=== PATIENT | male | born 1970 | race Caucasian/White ===

== ENCOUNTER 2018-08-09 14:14 | Observation (INO) ==
[2018-08-09] MEDS ORDERED: ASPIRIN 325 MG TABLET PO STA (14:36)
[2018-08-09] MEDS ORDERED: SODIUM CHLORIDE 0.9% 500 ML IV STA (14:36)
[2018-08-09] MEDS ORDERED: MORPHINE 4 MG/1 ML VIAL IV STA (14:36)
[2018-08-09] MEDS ORDERED: ALUM/MAG/SIMETH/LIDO VISC 1:1 30 ML BOTTLE PO STA (14:36)
[2018-08-09] MEDS ORDERED: ONDANSETRON 4 MG/2 ML VIAL IV STA ×2 (14:36→15:27)
[2018-08-09] MEDS ORDERED: NITROGLYCERIN 2% OINT 1 INCH/GM PACK TOP STA (14:36)
[2018-08-09] MEDS ORDERED: METOPROLOL TARTRATE 5 MG/5 ML VIAL IV STA (14:36)
[2018-08-09 14:44] LABS: Basophils % 0.5 % (0.0-0.8); Hematocrit 44.8 VOL% (42.0-52.0); Hemoglobin 14.2 GM/DL (14.0-18.0); Immature Granulocytes % 0.5 %; Immature Granulocytes Absolute 0.03 #; Lymphocytes # 1.1 10*3/uL (1.4-4.0); Mean Corpuscular HGB Conc 31.7 GM/DL (32-36); Mean Corpuscular Hemoglobin 28 PG (27-34); Mean Corpuscular Volume 87.2 FL (87-102); Mean Platelet Volume 10.2 FL (9.6-12.0); Monocytes # 0.4 10*3/uL (0.11-0.8); Monocytes % 6.7 % (1.7-12.7); Neutrophils # 4.7 10*3/uL (1.4-7.4); Neutrophils % 75.3 % (38.7-73.9); Platelet Count 415 T/CUMM (130-400); Red Blood Count 5.14 MC/CUMM (3.8-5.5); Red Cell Distribution Width 17.2 % (9.3-17.3); White Blood Count 6.3 T/CUMM (4-12)
[2018-08-09 14:52] LABS: INR 1.1; PT Patient Result 11.6 SECS
[2018-08-09 14:58] LABS: Albumin 3.6 G/DL (3.4-5.0); Bilirubin,Total 0.9 MG/DL (0.2-1.0); Calcium 9.3 MG/DL (8.5-10.1); Osmolality,Calculated 272.1 MOS/KG (273-304); Potassium 4.4 MMOL/L (3.5-5.1); Total Protein 7.4 G/DL (6.4-8.3)
[2018-08-09] MEDS ORDERED: MAGNESIUM SULF RIDER 2 GM in PREMIX 1 EACH IV STA (15:12)
[2018-08-09] MEDS ORDERED: ONDANSETRON 4 MG/2 ML VIAL IV PRN (16:44)
[2018-08-09] MEDS ORDERED: INSULIN LISPRO 100 UNIT/ML SUBCUT ONE (16:44)
[2018-08-09] MEDS ORDERED: MAGNESIUM SULF RIDER 4 GM in PREMIX 1 EACH IV PRN (16:44)
[2018-08-09] MEDS ORDERED: POTASSIUM CHLORIDE 20 MEQ TABLET PO PRN ×2 (16:44)
[2018-08-09] MEDS ORDERED: CLORAZEPATE 3.75 MG TABLET PO PRN (16:52)
[2018-08-09] MEDS ORDERED: DEXTROSE 50% 25 GM/50 ML VIAL IV PRN (17:03)
[2018-08-09] MEDS ORDERED: GLUCAGON 1 MG VIAL IM PRN (17:03)
[2018-08-09] MEDS: METOPROLOL TARTRATE 5 MG/5 ML VIAL IV SCH ×3 (17:24→17:45)
[2018-08-09] MEDS: ENOXAPARIN 100 MG/ML SYRINGE SUBCUT SCH (17:24)
[2018-08-09] MEDS: SODIUM CHLORIDE 0.9% 1,000 ML IV SCH (17:28)
[2018-08-09] MEDS: PANTOPRAZOLE 40 MG TABLET PO SCH (17:36)
[2018-08-09 17:44] LABS: Apearance,Urine CLEAR (Clear); Bilirubin,Urine Negative (Negative); Blood, Urine Negative (Negative); Glucose,Urine (UA) Negative (Negative); Ketones,Urine 80 mg/dL (Negative); Mucus,Urine Occasional /LPF (Occasional); Nitrite,Urine Negative (Negative); Protein,Urine 100 MG/DL; RBC,Urine 5 /HPF (0-4); Squamous Epithelial Cell,Urine Occasional /HPF (0-10); Urine Color Yellow (Yellow); Urine Specific Gravity > 1.060 (1.001-1.035)
[2018-08-09 18:02] LABS: Barbiturates Screen,Urine Negative (Negative); Benzodiazepines Screen,Urine Negative (Negative); Cannabinoid Screen,Urine Negative (Negative); Opiate Screen,Urine Positive (Negative); Phencyclidine Screen,Urine Negative (Negative)
[2018-08-09] MEDS ORDERED: CELEXA PO SCH (21:00)
[2018-08-09] MEDS ORDERED: PRAZOSIN PO SCH (21:00)
[2018-08-09] MEDS ORDERED: SIMVASTATIN 40 MG TABLET PO SCH (21:00)
[2018-08-09] MEDS ORDERED: ELAVIL PO SCH (21:00)
[2018-08-09] MEDS ORDERED: KEPPRA PO SCH (21:00)
[2018-08-09] MEDS: NITROGLYCERIN 2% OINT 1 INCH/GM PACK TOP SCH (21:20)
[2018-08-09] MEDS: METOPROLOL TARTRATE 25 MG TABLET PO SCH (21:25)
[2018-08-09] MEDS: GABAPENTIN 400 MG CAPSULE PO SCH (23:47)
[2018-08-10 05:11] LABS: Basophils % 0.4 % (0.0-0.8); Eosinophils % 0.8 % (0.00-10.9); Hematocrit 38.8 VOL% (42.0-52.0); Hemoglobin 12.3 GM/DL (14.0-18.0); Immature Granulocytes % 0.6 %; Immature Granulocytes Absolute 0.03 #; Lymphocytes # 1.4 10*3/uL (1.4-4.0); Lymphocytes % 27.6 % (21.2-54.2); Mean Corpuscular HGB Conc 31.7 GM/DL (32-36); Mean Corpuscular Hemoglobin 28 PG (27-34); Mean Corpuscular Volume 87.8 FL (87-102); Mean Platelet Volume 11.2 FL (9.6-12.0); Monocytes # 0.4 10*3/uL (0.11-0.8); Neutrophils # 3.2 10*3/uL (1.4-7.4); Neutrophils % 62.6 % (38.7-73.9); Red Blood Count 4.42 MC/CUMM (3.8-5.5); Red Cell Distribution Width 17.2 % (9.3-17.3); White Blood Count 5.1 T/CUMM (4-12)
[2018-08-10 05:16] LABS: Platelet Count 301 T/CUMM (130-400)
[2018-08-10 05:22] LABS: Albumin 2.8 G/DL (3.4-5.0); Bilirubin,Total 1.8 MG/DL (0.2-1.0); Calcium 8.2 MG/DL (8.5-10.1); Osmolality,Calculated 269.1 MOS/KG (273-304); Potassium 3.9 MMOL/L (3.5-5.1); Risk Ratio 18.33; Total Protein 6.4 G/DL (6.4-8.3); VLDL CHOLESTEROL 52.6 MG/DL
[2018-08-10] MEDS: NITROGLYCERIN 2% OINT 1 INCH/GM PACK TOP SCH ×3 (07:02→14:51)
[2018-08-10] MEDS: SODIUM CHLORIDE 0.9% 1,000 ML IV SCH ×4 (07:02→17:30)
[2018-08-10] MEDS: ENOXAPARIN 100 MG/ML SYRINGE SUBCUT SCH (07:03)
[2018-08-10] MEDS ORDERED: ASPIRIN 325 MG TABLET PO SCH (09:00)
[2018-08-10] MEDS: PANTOPRAZOLE 40 MG TABLET PO SCH (10:46)
[2018-08-10] MEDS: GABAPENTIN 400 MG CAPSULE PO SCH ×4 (10:46→20:26)
[2018-08-10] MEDS: levETIRAcetam 500 MG TABLET PO SCH ×3 (10:46→20:26)
[2018-08-10] MEDS: METOPROLOL TARTRATE 25 MG TABLET PO SCH ×2 (10:46→20:28)
[2018-08-10] MEDS ORDERED: ALPRAZolam 0.5 MG TABLET PO ONE (15:43)
[2018-08-10] MEDS ORDERED: METOPROLOL TARTRATE 25 MG TABLET PO ONE (15:44)
[2018-08-10] MEDS ORDERED: ALUM/MAG/SIMETH/LIDO VISC 1:1 30 ML BOTTLE PO PRN (16:09)
[2018-08-10] MEDS ORDERED: MAGNESIUM SULF RIDER 2 GM in PREMIX 1 EACH IV PRN (16:37)
[2018-08-10] MEDS ORDERED: MAGNESIUM SULF RIDER 4 GM in PREMIX 1 EACH IV PRN (16:37)
[2018-08-10] MEDS ORDERED: DEXTROSE 50% 25 GM/50 ML SYRINGE IV PRN (17:00)
[2018-08-10 18:37] LABS: Hepatitis A Ab IgM Quant 0.12 Index; Hepatitis A Ab IgM Result Negative (Negative); Hepatitis B Core IgM Quant 0.17 Index; Hepatitis B Core IgM Result Negative (Negative); Hepatitis B Surface Ag Quant < 0.10 Index; Hepatitis B Surface Ag Result Negative (Negative); Hepatitis C Virus Ab Result Negative (Negative)
[2018-08-10] MEDS: PRAZOSIN 1 MG CAPSULE PO SCH (20:25)
[2018-08-10] MEDS: CITALOPRAM 20 MG TABLET PO SCH (20:25)
[2018-08-10] MEDS: METOPROLOL TARTRATE 50 MG TABLET PO SCH (20:26)
[2018-08-10] MEDS: AMITRIPTYLINE 50 MG TABLET PO SCH (20:27)
[2018-08-10] MEDS: ALPRAZolam 0.25 MG TABLET PO PRN (22:36)
[2018-08-11] MEDS: SODIUM CHLORIDE 0.9% 1,000 ML IV SCH ×2 (00:50→11:05)
[2018-08-11 05:26] LABS: Basophils % 0.3 % (0.0-0.8); Eosinophils # 0.1 10*3/uL (0.0-0.87); Eosinophils % 2.3 % (0.00-10.9); Hematocrit 38.5 VOL% (42.0-52.0); Hemoglobin 12.1 GM/DL (14.0-18.0); Immature Granulocytes % 1.4 %; Immature Granulocytes Absolute 0.05 #; Lymphocytes # 1.5 10*3/uL (1.4-4.0); Lymphocytes % 41.4 % (21.2-54.2); Mean Corpuscular HGB Conc 31.4 GM/DL (32-36); Mean Corpuscular Hemoglobin 28 PG (27-34); Mean Corpuscular Volume 89.5 FL (87-102); Mean Platelet Volume 11.1 FL (9.6-12.0); Monocytes # 0.3 10*3/uL (0.11-0.8); Monocytes % 7.1 % (1.7-12.7); Neutrophils # 1.7 10*3/uL (1.4-7.4); Neutrophils % 47.5 % (38.7-73.9); Platelet Count 203 T/CUMM (130-400); Red Cell Distribution Width 16.8 % (9.3-17.3); White Blood Count 3.5 T/CUMM (4-12)
[2018-08-11 05:36] LABS: Calcium 7.8 MG/DL (8.5-10.1); Osmolality,Calculated 272.8 MOS/KG (273-304); Potassium 3.8 MMOL/L (3.5-5.1)
[2018-08-11] MEDS: GABAPENTIN 400 MG CAPSULE PO SCH ×4 (10:35→22:14)
[2018-08-11] MEDS: levETIRAcetam 500 MG TABLET PO SCH ×3 (10:35→22:14)
[2018-08-11] MEDS: PANTOPRAZOLE 40 MG TABLET PO SCH (10:35)
[2018-08-11] MEDS: ENOXAPARIN 40 MG/0.4 ML SYRINGE SUBCUT SCH (10:35)
[2018-08-11] MEDS: ASPIRIN EC 81 MG TABLET PO SCH (10:35)
[2018-08-11] MEDS: METOPROLOL TARTRATE 50 MG TABLET PO SCH ×2 (10:35→22:14)
[2018-08-11] MEDS ORDERED: MAGNESIUM SULF RIDER 2 GM in PREMIX 1 EACH IV PRN (13:00)
[2018-08-11] MEDS ORDERED: POTASSIUM CHLORIDE RIDER 10 MEQ in PREMIX 1 EACH IV PRN (13:00)
[2018-08-11] MEDS: ALPRAZolam 0.25 MG TABLET PO PRN (14:26)
[2018-08-11] MEDS ORDERED: IBUPROFEN 800 MG TABLET PO PRN (14:42)
[2018-08-11] MEDS: MORPHINE 4 MG/1 ML VIAL IV PRN (15:03)
[2018-08-11] MEDS: AMITRIPTYLINE 50 MG TABLET PO SCH (22:14)
[2018-08-11] MEDS: CITALOPRAM 20 MG TABLET PO SCH (22:14)
[2018-08-11] MEDS: PRAZOSIN 1 MG CAPSULE PO SCH (22:14)
[2018-08-12] MEDS ORDERED: DIAZEPAM 5 MG TABLET PO ONE (00:01)
[2018-08-12] MEDS ORDERED: diphenhydrAMINE CAP 25 MG CAPSULE PO ONE (00:01)
[2018-08-12] MEDS: SODIUM CHLORIDE 0.9% 1,000 ML IV SCH ×7 (04:31→21:37)
[2018-08-12 05:10] LABS: Basophils % 0.5 % (0.0-0.8); Eosinophils # 0.1 10*3/uL (0.0-0.87); Eosinophils % 2.9 % (0.00-10.9); Hematocrit 37.2 VOL% (42.0-52.0); Hemoglobin 11.7 GM/DL (14.0-18.0); Immature Granulocytes % 1.5 %; Immature Granulocytes Absolute 0.06 #; Lymphocytes # 1.7 10*3/uL (1.4-4.0); Mean Corpuscular HGB Conc 31.5 GM/DL (32-36); Mean Corpuscular Hemoglobin 28 PG (27-34); Mean Corpuscular Volume 89.6 FL (87-102); Mean Platelet Volume 11.4 FL (9.6-12.0); Monocytes # 0.3 10*3/uL (0.11-0.8); Monocytes % 6.3 % (1.7-12.7); Neutrophils % 47.8 % (38.7-73.9); Platelet Count 175 T/CUMM (130-400); Red Blood Count 4.15 MC/CUMM (3.8-5.5); Red Cell Distribution Width 16.6 % (9.3-17.3); White Blood Count 4.1 T/CUMM (4-12)
[2018-08-12 05:24] LABS: Calcium 7.8 MG/DL (8.5-10.1); Osmolality,Calculated 273.7 MOS/KG (273-304); Potassium 4.2 MMOL/L (3.5-5.1)
[2018-08-12] MEDS ORDERED: diphenhydrAMINE CAP 50 MG CAPSULE ONE (07:09)
[2018-08-12] MEDS ORDERED: DIAZEPAM 5 MG TABLET ONE (07:10)
[2018-08-12] MEDS: ENOXAPARIN 40 MG/0.4 ML SYRINGE SUBCUT SCH ×2 (07:25→11:24)
[2018-08-12] MEDS: METOPROLOL TARTRATE 50 MG TABLET PO SCH ×3 (07:25→21:31)
[2018-08-12] MEDS: ASPIRIN EC 81 MG TABLET PO SCH ×2 (07:25→11:01)
[2018-08-12] MEDS: PANTOPRAZOLE 40 MG TABLET PO SCH ×2 (07:25→11:01)
[2018-08-12] MEDS ORDERED: HEPARIN/NACL 0.9% 2 UNITS/ML 1,000 ML IV ONE (08:25)
[2018-08-12] MEDS ORDERED: MIDAZOLAM 2 MG/2 ML VIAL ONE (08:25)
[2018-08-12] MEDS ORDERED: LIDOCAINE 1% 20 ML VIAL ONE (08:25)
[2018-08-12] MEDS ORDERED: HYDROmorphone 2 MG/1 ML VIAL ONE (08:25)
[2018-08-12] MEDS ORDERED: HEPARIN/NACL 0.9% 2 UNITS/ML 500 ML IV ONE (10:17)
[2018-08-12] MEDS ORDERED: ZALEPLON 5 MG CAPSULE PO PRN (10:37)
[2018-08-12] MEDS: GABAPENTIN 400 MG CAPSULE PO SCH ×4 (11:24→21:30)
[2018-08-12] MEDS: levETIRAcetam 500 MG TABLET PO SCH ×3 (11:25→21:31)
[2018-08-12] MEDS: MORPHINE 4 MG/1 ML VIAL IV PRN (14:01)
[2018-08-12] MEDS: CITALOPRAM 20 MG TABLET PO SCH (21:30)
[2018-08-12] MEDS: AMITRIPTYLINE 50 MG TABLET PO SCH (21:31)
[2018-08-12] MEDS: PRAZOSIN 1 MG CAPSULE PO SCH (21:31)
[2018-08-13 05:46] LABS: Calcium 7.6 MG/DL (8.5-10.1); Osmolality,Calculated 275.7 MOS/KG (273-304); Potassium 3.8 MMOL/L (3.5-5.1)
[2018-08-13] MEDS: GABAPENTIN 400 MG CAPSULE PO SCH (08:51)
[2018-08-13] MEDS: PANTOPRAZOLE 40 MG TABLET PO SCH (08:51)
[2018-08-13] MEDS: levETIRAcetam 500 MG TABLET PO SCH (08:51)
[2018-08-13] MEDS: ASPIRIN EC 81 MG TABLET PO SCH (08:51)
[2018-08-13] MEDS: METOPROLOL TARTRATE 50 MG TABLET PO SCH (08:51)
[2018-08-13] MEDS: SODIUM CHLORIDE 0.9% 1,000 ML IV SCH (08:59)
[2018-08-13] MEDS ORDERED: ATORVASTATIN 40 MG TABLET PO SCH (09:00)
[2018-08-13] MEDS ORDERED: LOSARTAN 25 MG TABLET PO SCH (09:00)
[2018-08-13 12:21] VITALS: BP 120/73
== END 2018-08-13 13:05 | disposition home or self-care (01) ==
LOC: N.ED 14:14 → N.EDINP 14:14 → N.TELEN 17:34
PROVIDERS: ADMIT Internal Medicine; ATTEND Internal Medicine
PROC: CLCCHCL (ICD-10-PCS; 2018-08-12 08:45)